=== PATIENT | female | born 1995 ===

== ENCOUNTER 2023-11-28 13:50 | Inpatient (IN) ==
[2023-11-28] MEDS ORDERED: LIDOCAINE 1% LOCAL 20 ML VIAL INFIL PRN (14:55)
[2023-11-28] MEDS ORDERED: OXYTOCIN 30 UNITS/NSS 30 UNITS/500 ML BAG IV PRN ×2 (14:55→23:58)
--- NOTE | 2023-11-28 14:55 | Labor Progress Brief Note ---
Date of Service November 28, 2023 Subjective 27yo Transfer into care in 3rd trimester, PNC in [place], patient speaks [place], and delivered last baby in [facility]. Presents today with contractions since this morning. Painful, Q3m. No LOF, no VB, good FM. Assessment & Plan (1) Group B streptococcal infection during : (2) Normal labor: Plan Last exam in office, per pt, was 1cm and was 2 days ago. Will admit, epidural prn, augment prn. Physical Exam Genitourinary: /-2 Intact FHT Cat 1 [place] Q3 Results & Data Vital Signs (Past 12 Hours) Vital Signs Pulse BP 11/28/23 14:46 89 130/95 11/28/23 14:36 93 H 130/86 11/28/23 14:25 88 126/86 11/28/23 14:16 88 130/85 11/28/23 14:03 88 127/85 Coding Level of Care Code None Diagnoses Group B streptococcal infection during O98.819; B95.1 Normal labor O80; Z37.9
[2023-11-28] MEDS: LACTATED RINGER'S 1,000 ML IV PRN (15:00)
[2023-11-28] MEDS: PENICILLIN GK 6 MU in DEXTROSE 5% 250 ML IV STA (15:19)
[2023-11-28 15:24] LABS: Hematocrit (blood only) 32.3 % (37.0-47.0); Hemoglobin 10.9 g/dl (12.0-16.0); Mean Corpuscular Hemoglobin 29.8 pg (25.0-34.0); Mean Corpuscular Hgb Conc 33.7 g/dL (32.0-36.0); Mean Corpuscular Volume 88.3 fL (80.0-100.0); Mean Platelet Volume 10.5 fL (9.4-12.4); Platelet Count 230 K/uL (130-400); RDW Standard Deviation 42.2 fL (36.4-46.3); Red Blood Count 3.66 M/uL (4.20-5.40); White Blood Count 9.76 K/ul (4.8-10.8)
--- NOTE | 2023-11-28 15:40 | Anesthesiology Consultation ---
Date of Service November 28, 2023 Assessment & Plan (1) Encounter for pre-operative examination: Chart Review Chart Review: Acceptable Risk for Labor Epidural History Allergies Allergy/AdvReac Type Severity Reaction Status Date / Time No Known Allergies Allergy Verified 11/26/23 14:08 Medications Home Medications Medication Instructions Recorded Confirmed Last Taken No Known Home Medications 11/12/23 11/26/23 Unknown Active Medications Generic Name Dose Route Start Last Admin Trade Name Freq PRN Reason Stop Dose Admin Lactated Ringer's 1,000 mls @ 125 mls/hr 11/28/23 14:55 11/28/23 15:00 Lr IV 11/30/23 14:54 999 mls/hr .Q8H PRN Administration L&D Protocol Protocol Penicillin G Potassium 6 mu/ 262 mls @ 262 mls/hr 11/28/23 14:55 11/28/23 15:19 Dextrose IV 11/28/23 15:54 262 mls/hr NOW STA Administration Past Medical History Medical History (Updated 11/28/23 @ 15:40 by Marcio Parker MD) Group B streptococcal infection during Past Surgical History Surgical History (Updated 11/28/23 @ 15:39 by Marcio Parker MD) No pertinent past surgical history Social History Smoking Status: Never smoker Do You Dip or Chew Tobacco: No Physical Exam Vital Signs Last Vital Signs Pulse 89 11/28/23 14:46 BP 130/95 11/28/23 14:46 Testing Laboratory Results 11/28/23 15:02
[2023-11-28] MEDS: LIDOCAINE 2%/EPINEPHRINE 1:200,000 20 ML PF ONE (16:12)
[2023-11-28] MEDS: BUPIVACAINE 0.25% PF 30 ML VIAL ONE (16:12)
[2023-11-28] MEDS: fentaNYL citrate PF 100 MCG/2 ML VIAL ONE (16:12)
[2023-11-28] MEDS: fentANYL 2 MCG/ML BUPIVacaine 0.125%-NSS 100ML BAG ONE (16:14)
[2023-11-28] MEDS ORDERED: SODIUM CHLORIDE 0.9% PF INJ 10 ML VIAL EPI PRN (16:15)
[2023-11-28] MEDS ORDERED: fentaNYL citrate PF 100 MCG/2 ML VIAL EPI STA (16:15)
[2023-11-28] MEDS ORDERED: ROPIVACAINE 0.5% PF 5 MG/ML 20 ML VIAL EPI PRN (16:15)
[2023-11-28] MEDS ORDERED: fentANYL 2 MCG/ML BUPIVacaine 0.125%-NSS 100ML BAG EPI PRN (16:15)
[2023-11-28] MEDS ORDERED: LIDOCAINE 2% MPF LOCAL 5 ML VIAL EPI PRN (16:15)
[2023-11-28] MEDS ORDERED: NALOXONE HCL 1 MG in SODIUM CHLORIDE 0.9% 1,000 ML IV PRN (16:15)
[2023-11-28] MEDS ORDERED: NALOXONE HCL 0.4 MG/1 ML VIAL/CARP IV PRN (16:15)
[2023-11-28] MEDS ORDERED: fentaNYL citrate PF 100 MCG/2 ML VIAL EPI PRN (16:15)
[2023-11-28] MEDS ORDERED: ePHEDrine sulfate 50 MG/ML AMP IV PRN (16:15)
[2023-11-28] MEDS ORDERED: BUPIVACAINE 0.25% PF 30 ML VIAL EPI PRN (16:15)
[2023-11-28] MEDS ORDERED: ONDANSETRON INJ 2 MG/ML 2 ML VIAL IV PRN (16:15)
[2023-11-28] MEDS: ePHEDrine sulfate 50 MG/ML AMP ONE (17:10)
[2023-11-28] MEDS: BUPIVACAINE 0.25% PF 30 ML VIAL EPI STA (17:10)
[2023-11-28] MEDS: SODIUM CHLORIDE 0.9% PF INJ 10 ML VIAL ONE (17:10)
[2023-11-28] MEDS: SODIUM CHLORIDE 0.9% PF INJ 10 ML VIAL EPI STA (17:11)
[2023-11-28] MEDS: INFLUENZA VIRUS QUADRIVALENT VACCINE (IIV4) 0.5 ML SYR IM ONE (17:11)
[2023-11-28] MEDS: LIDOCAINE 2%/EPINEPHRINE 1:200,000 20 ML PF EPI STA (17:11)
[2023-11-28] MEDS: PENICILLIN GK 3 MU in DEXTROSE 5% 100 ML IV PRN (19:02)
[2023-11-28] MEDS: OXYTOCIN 30 UNITS/NSS 30 UNITS/500 ML BAG IV PRN (23:08)
--- NOTE | 2023-11-28 23:09 | Delivery Summary ---
Vaginal Delivery Summary Date of Service November 28, 2023 Vaginal Delivery Summary DIAGNOSES: 1. Spangler intrauterine at 40w0d gestation. 2. Spontaneous onset of labor. 3. Group B Streptococcus Pos. PROCEDURE: Spontaneous vaginal delivery without laceration. SURGEON: Rica Dias MD. VAULT INSTALLER: None. ESTIMATED BLOOD LOSS: 350 mL. COMPLICATIONS: None. PLACENTA: Spontaneous and intact with a 3-vessel cord. DISPOSITION: Stable to labor and delivery. DESCRIPTION: The patient pushed well and brought the head to in DOA position. The 's head was allowed to deliver with contraction force and no further active pushing, with the perineum protected during this time. There was no nuchal cord. The shoulders and body delivered without any difficulty, and the infant was placed on the maternal abdomen. It was vigorous and moving all extremities, and making respiratory efforts. The cord was doubly clamped by the MD and then cut by the FOB. The placenta delivered spontaneously and was noted to be intact and with a 3VC. The cervix, vagina and perineum were examined and were found to be without defect requiring repair. The fundus was firm and lochia minimal immediately after delivery. MNP Vaginal Delivery Charge Vaginal Delivery Codes: 88276 global code for the antepartum, delivery, and post-
[2023-11-28] MEDS ORDERED: ACETAMINOPHEN 325 MG TAB PO PRN (23:58)
[2023-11-28] MEDS ORDERED: HYDROCORTISONE ACETATE 25 MG SUPP PR PRN (23:58)
[2023-11-28] MEDS ORDERED: DIPHTHER/TETAN/PERTUS Vaccine (Tdap, Adol/Adult) 0.5mL IM ONE (23:58)
[2023-11-28] MEDS ORDERED: BENZOCAINE 20% SPRY 85 APPLN/85 GM CAN EXT PRN (23:58)
[2023-11-28] MEDS ORDERED: oxyCODONE/ACETAMINOPHEN 5mg/325mg TAB PO PRN (23:58)
--- NOTE | 2023-11-29 06:39 | Obstetrical Progress Note ---
Date of Service November 29, 2023 Assessment & Plan (1) state: Recovering well. Subjective Ambulation: ambulating normally Voiding: no voiding problems Passing Gas:: Yes Diet Tolerance:: regular diet Lochia:: Small Feeding Type:: breast feeding Physical Exam Constitutional WD/WN, vitals as above Eyes PERRL, conjunctivae normal, anicteric sclerae Neck normal visual inspection Respiratory normal respiratory effort and able to speak in complete sentences; no respiratory distress and no labored breathing Cardiovascular Rate/Rhythm: regular rate and regular rhythm Extremities: no edema Chest (Breasts) Chest: normal inspection of chest Gastrointestinal (Abdomen) Inspection/Auscultation: abdomen normal to inspection Soft, postgravid Psychiatric A+Ox3, euthymic affect Genitourinary OB Exam Abdomen: + fundal height Fundus: + firm and + relation to umbilicus (fundus just below umbilicus); not tender Results & Data Vital Signs (Past 12 Hours) Vital Signs Temp Pulse Pulse Resp BP BP Pulse Ox 11/29/23 03:03 98.6 F 90 14 125/83 11/29/23 01:37 88 117/67 11/29/23 01:22 86 118/72 11/29/23 01:07 100 H 127/79 11/29/23 01:00 18 11/29/23 00:52 97 H 129/78 11/29/23 00:37 78 127/73 11/29/23 00:30 18 11/29/23 00:22 77 125/70 11/29/23 00:07 77 121/79 11/29/23 00:00 18 11/28/23 23:52 89 128/83 11/28/23 23:45 18 11/28/23 23:37 76 120/72 11/28/23 23:30 18 11/28/23 23:22 84 131/63 11/28/23 23:15 98.6 F 18 11/28/23 23:10 94 11/28/23 23:10 87 11/28/23 23:10 85 94 11/28/23 23:07 85 143/73 H 11/28/23 23:05 90 94 11/28/23 23:02 92 H 106/55 L 94 11/28/23 23:00 87 94 11/28/23 22:57 85 137/72 11/28/23 22:56 79 94 11/28/23 22:55 85 96 11/28/23 22:51 83 93 11/28/23 22:50 83 94 11/28/23 22:45 86 95 11/28/23 22:42 92 H 92 11/28/23 22:40 82 96 11/28/23 22:35 82 95 11/28/23 22:30 90 95 11/28/23 22:29 88 94 11/28/23 22:25 87 94 11/28/23 22:23 79 93 11/28/23 22:20 81 96 11/28/23 22:15 96 11/28/23 22:15 82 11/28/23 22:15 87 93 11/28/23 22:10 84 97 11/28/23 22:05 80 95 11/28/23 22:00 88 97 11/28/23 21:55 85 98 11/28/23 21:51 70 94 11/28/23 21:50 72 95 11/28/23 21:46 78 131/80 11/28/23 21:45 85 96 11/28/23 21:40 80 96 11/28/23 21:37 83 93 11/28/23 21:35 75 95 11/28/23 21:31 88 131/82 11/28/23 21:30 86 95 11/28/23 21:25 76 95 11/28/23 21:20 82 95 11/28/23 21:16 73 136/85 11/28/23 21:15 82 96 11/28/23 21:14 80 94 11/28/23 21:10 84 97 11/28/23 21:05 87 95 11/28/23 21:01 93 H 135/81 11/28/23 21:00 91 H 96 11/28/23 20:55 75 95 11/28/23 20:50 87 95 11/28/23 20:47 81 129/79 11/28/23 20:45 82 96 11/28/23 20:40 83 96 11/28/23 20:38 71 94 11/28/23 20:35 76 95 11/28/23 20:31 75 133/84 11/28/23 20:30 89 95 11/28/23 20:29 73 94 11/28/23 20:25 82 95 11/28/23 20:23 74 94 11/28/23 20:20 78 95 11/28/23 20:16 83 126/82 11/28/23 20:15 74 96 11/28/23 20:10 78 95 11/28/23 20:05 85 96 11/28/23 20:01 84 124/84 11/28/23 20:00 72 96 11/28/23 19:55 78 96 11/28/23 19:50 88 96 11/28/23 19:46 80 128/83 11/28/23 19:45 85 97 11/28/23 19:40 78 96 11/28/23 19:35 83 96 11/28/23 19:31 85 128/83 11/28/23 19:30 80 97 11/28/23 19:25 80 96 11/28/23 19:20 95 H 96 11/28/23 19:16 76 128/81 11/28/23 19:15 84 96 11/28/23 19:10 73 96 11/28/23 19:05 75 96 11/28/23 19:01 82 124/87 11/28/23 19:00 77 98 11/28/23 18:55 85 97 11/28/23 18:50 75 96 11/28/23 18:46 83 120/79 11/28/23 18:45 87 95 11/28/23 18:40 68 96 11/28/23 18:36 71 94 11/28/23 18:35 76 95 O2 Del Method 11/29/23 03:03 Room Air 11/29/23 01:37 11/29/23 01:22 11/29/23 01:07 11/29/23 01:00 11/29/23 00:52 11/29/23 00:37 11/29/23 00:30 11/29/23 00:22 11/29/23 00:07 11/29/23 00:00 11/28/23 23:52 11/28/23 23:45 11/28/23 23:37 11/28/23 23:30 11/28/23 23:22 11/28/23 23:15 11/28/23 23:10 11/28/23 23:10 11/28/23 23:10 11/28/23 23:07 11/28/23 23:05 11/28/23 23:02 11/28/23 23:00 11/28/23 22:57 11/28/23 22:56 11/28/23 22:55 11/28/23 22:51 11/28/23 22:50 11/28/23 22:45 11/28/23 22:42 11/28/23 22:40 11/28/23 22:35 11/28/23 22:30 11/28/23 22:29 11/28/23 22:25 11/28/23 22:23 11/28/23 22:20 11/28/23 22:15 11/28/23 22:15 11/28/23 22:15 11/28/23 22:10 11/28/23 22:05 11/28/23 22:00 11/28/23 21:55 11/28/23 21:51 11/28/23 21:50 11/28/23 21:46 11/28/23 21:45 11/28/23 21:40 11/28/23 21:37 11/28/23 21:35 11/28/23 21:31 11/28/23 21:30 11/28/23 21:25 11/28/23 21:20 11/28/23 21:16 11/28/23 21:15 11/28/23 21:14 11/28/23 21:10 11/28/23 21:05 11/28/23 21:01 11/28/23 21:00 11/28/23 20:55 11/28/23 20:50 11/28/23 20:47 11/28/23 20:45 11/28/23 20:40 11/28/23 20:38 11/28/23 20:35 11/28/23 20:31 11/28/23 20:30 11/28/23 20:29 11/28/23 20:25 11/28/23 20:23 11/28/23 20:20 11/28/23 20:16 11/28/23 20:15 11/28/23 20:10 11/28/23 20:05 11/28/23 20:01 11/28/23 20:00 11/28/23 19:55 11/28/23 19:50 11/28/23 19:46 11/28/23 19:45 11/28/23 19:40 11/28/23 19:35 11/28/23 19:31 11/28/23 19:30 11/28/23 19:25 11/28/23 19:20 11/28/23 19:16 11/28/23 19:15 11/28/23 19:10 11/28/23 19:05 11/28/23 19:01 11/28/23 19:00 11/28/23 18:55 11/28/23 18:50 11/28/23 18:46 11/28/23 18:45 11/28/23 18:40 11/28/23 18:36 11/28/23 18:35
[2023-11-29 06:51] LABS: Hematocrit (blood only) 31.6 % (37.0-47.0); Hemoglobin 10.3 g/dl (12.0-16.0); Mean Corpuscular Hemoglobin 29.3 pg (25.0-34.0); Mean Corpuscular Hgb Conc 32.6 g/dL (32.0-36.0); Mean Corpuscular Volume 89.8 fL (80.0-100.0); Mean Platelet Volume 10.8 fL (9.4-12.4); Platelet Count 231 K/uL (130-400); RDW Standard Deviation 42.5 fL (36.4-46.3); Red Blood Count 3.52 M/uL (4.20-5.40); White Blood Count 12.49 K/ul (4.8-10.8)
[2023-11-29] MEDS: IBUPROFEN 600 MG TAB PO PRN (08:43)
[2023-11-29] MEDS: PRENATAL VITAMIN 1 TAB PO SCH (08:43)
[2023-11-29] MEDS: DOCUSATE SODIUM 100 MG CAP PO SCH (08:43)
--- NOTE | 2023-11-29 08:47 | Anesthesia Procedure Note ---
Date of Service November 29, 2023 Anesthesia Post Epidural Note Vital Signs Vital Signs: Temp Pulse Resp BP Pulse Ox O2 Del Method 37.0 C 90 14 125/83 94 Room Air 11/29/23 03:03 11/29/23 03:03 11/29/23 03:03 11/29/23 03:03 11/28/23 23:10 11/29/23 03:03 Notes Mental Status: alert / awake / arousable and participated in evaluation Nausea / Vomiting: adequately controlled Pain: adequately controlled Airway Patency, RR, SpO2: stable & adequate BP & HR: stable & adequate Hydration State: stable & adequate Neuraxial Anesthesia: was administered and sensory block is resolving Anesthetic Complications: no major complications apparent Epidural: Removed without complications and With tip intact
[2023-11-29] MEDS: bisacodyL 5 MG TABEC PO SCH (20:10)
--- NOTE | 2023-11-30 04:42 | Obstetrical Progress Note ---
Date of Service November 30, 2023 Assessment & Plan (1) state: Plan 27 y/o PPD#2 Eating well, voiding well, ambulating well Vitals reviewed, WNL Pain well controlled with Motrin Routine post care - OOB, ambulation, diet progression as tolerated Will have 6 week follow up with Dr. Dias Subjective Ambulation: ambulating normally Voiding: no voiding problems Passing Gas:: Yes Diet Tolerance:: regular diet Lochia:: Small Feeding Type:: breast feeding Pain well controlled with Motrin Review of Systems -Denies fever or chills -Denies dyspnea, chest pain, or palpitations -Denies breast pain -Denies dysuria -Denies headache or changes in vision Physical Exam Resident exam deferred as patient refused exam Results & Data Vital Signs (Past 12 Hours) Vital Signs Temp Pulse Resp BP O2 Del Method 11/30/23 00:20 36.7 C 68 18 121/73 Room Air 11/29/23 19:58 37.2 C 99 H 17 129/88
[2023-11-30 06:30] LABS: Hematocrit (blood only) 31.9 % (37.0-47.0); Hemoglobin 10.2 g/dl (12.0-16.0)
[2023-11-30] MEDS ORDERED: bisacodyL 10 MG SUPP PR PRN (23:58)
== END 2023-11-30 11:05 | disposition home or self-care (01) | DRG 807 ==
LOC: OPB 13:50 → 4S1 13:51 → 4E2 11-29 02:28